=== PATIENT | female | born 1970 | race Caucasian/White ===

== ENCOUNTER 2022-11-27 06:10 | Observation (INO) ==
--- NOTE | 2022-11-08 16:23 | PAT Medication Instructions ---
Medication Instructions Date of Service November 08, 2022 Home Medications Medication Instructions Recorded Maria Isabel Chahal #1 ea 10/26/22 tramadol 50 mg tablet 50 mg PO DAILY Wheeled Tirso amlodipine 10 mg tablet 10 mg PO HS losartan 100 mg tablet 100 mg PO HS Continue as directed tramadol 50 mg tablet 50 mg PO DAILY Take evening before surgery amlodipine 10 mg tablet 10 mg PO HS losartan 100 mg tablet 100 mg PO HS Other Notes NOTHING TO EAT OR DRINK AFTER MIDNIGHT. If you have any questions please call us at [phone] or [phone] or [phone] or [phone]
--- NOTE | 2022-11-15 09:09 | Anesthesiology Consultation ---
Date of Service November 15, 2022 Assessment & Plan (1) Encounter for pre-operative examination: - COVID screening: Per assessment on 11/15: No known COVID-19 positive contacts or current COVID-19 related symptoms. Travel screen negative. Patient vaccinated. At surgeon discretion if preop Covid testing being done. - Outpatient joint assessment: Pt currently scheduled for inpatient pathway. If surgeon requests review for outpatient joint pathway, patient is not recommended candidate for outpatient joint program from anesthesia standpoint. - Pt request: "Does not want to hear tools" perioperatively. Requests deeper sedation if possible. - Check test AM DOS Chart Review Chart Review: Acceptable Risk for Surgery and Patient seen in Pre Admission Testing Teaching & Discussion Pre-Anesthesia Teaching/Discussion Notes: Instructed NPO after midnight before surgery,except medications with 15 cc of water. Medication instructions provided according to the PAT guidelines. History Surgery Operation Date: 11/27/22 10:40 Proposed Procedures p Right Total Knee Arthroplasty - Aurelio Miller MD Height/Weight Height: 5 ft 7 in Weight: 137.3 kg Allergies Allergy/AdvReac Type Severity Reaction Status Date / Time No Known Allergies Allergy Verified 11/08/22 11:18 Medications Home Medications Medication Instructions Recorded Confirmed Last Taken tramadol 50 mg tablet 50 mg PO DAILY 09/13/22 11/08/22 Unknown amlodipine 10 mg tablet 10 mg PO HS 11/08/22 11/08/22 Unknown losartan 100 mg tablet 100 mg PO HS 11/08/22 11/08/22 Unknown Wheeled Walker #1 ea 11/15/22 Unknown Past Medical History Medical History Degenerative arthritis of knee, bilateral History of COVID-19 1+ years ago- fever, chills, N/V > resolved Hypertension Morbid obesity Exercise / Class Metabolic Activity III < 4 Walking/Shop/Light housework Past Surgical History Surgical History Hx of appendectomy Hx of section x3 Hx of colonoscopy Hx of laparoscopy for ectopic Past Anesthesia History No Hx of Anesthesia Complications and No Family Hx of Anesthesia Complications History of PONV No Hx of PONV and No Hx of Motion Sickness Social History Smoking Status: Former smoker Do You Dip or Chew Tobacco: No Smoking End Date: Quit (short-term use as teen) Hx Alcohol Use: Yes Alcohol type: wine alcohol intake frequency: holidays/special occasions only Hx Substance Use: No substance use type: does not use Review of Systems Patient denies chest pain, shortness of breath, dyspnea on exertion, fever, chills, cough, wheezing, palpitations. Physical Exam Vital Signs VITALS BP 150/81 P 88 TEMP 98.4 SP02 95%RA RESP 16 PHYSICAL Full cervical extension range of motion. Full TMJ range of motion. TMD 4 finger breaths Mallampati Score 3 Dentition: intact Lungs: clear throughout to auscultation Cardiac: regular rate and rhythm, no murmurs noted Spine: normal Carotid arteries: negative bruit Extremities: no edema Lab Results Anesthesia Preop Results Results Anesthesia Widget: WBC 8.71 K/ul (4.8-10.8) 11/15/22 Hgb 15.2 g/dl (12.0-16.0) 11/15/22 Hct 44.7 % (34.1-44.9) 11/15/22 Plt 336 K/uL (130-400) 11/15/22 Na 139 mmol/L (136-145) 11/15/22 K 3.9 mmol/L (3.5-5.1) 11/15/22 Cl 105 mmol/L (98-107) 11/15/22 CO2 27 mmol/L (21-32) 11/15/22 BUN 12 mg/dl (6-23) 11/15/22 Creat 0.79 mg/dl (0.6-1.2) 11/15/22 Glucose Level 91 mg/dl (70-99(Fasting)) 11/15/22 PT 9.9 Seconds (9.0-12.0) 11/15/22 PTT 26.6 Seconds (21.0-31.0) 11/15/22 INR 0.9 (0.9-1.1) 11/15/22 Blood Type A Positive 11/15/22 Antibody Screen NEGATIVE 11/15/22 Testing Electrocardiogram Date: 11/15/22 NSR at 81bpm. unconfirmed report. Chest X-Ray Date: 11/15/22 FINDINGS: Cardiomediastinal and hilar silhouettes are within normal limits. There is no pneumothorax, pleural effusion, airspace consolidation or overt pulmonary edema. Right hemidiaphragmatic elevation. Bones appear grossly intact. IMPRESSION: No acute process. COVID-19 Risk Screen Screening Information COVID-19 Screen Date: 11/15/22 Exposure 21 Days Family/Household +COVID Last 21 Days: No Exposure 10 Days Any COVID Exposure Last 10 Days: No Symptoms Last 10 Days Experienced COVID Sx Last 10 Days: No + COVID 0-90 Days COVID + in Last 0-90 Days: No
--- NOTE | 2022-11-24 17:52 | History and Physical Report ---
DATE OF ADMISSION: 11/27/2022 CHIEF COMPLAINT: Bilateral knee pain and discomfort, right side greater than the left. HISTORY OF PRESENT ILLNESS: The patient is a 52-year-old female who presents for surgical treatment of her knees. She has a 10+ year history of increasing bilateral knee pain and discomfort that has g radually gotten worse over time. She has been through extensive conservative treatment, which has ju st become less successful over time. She has seen multiple orthopedic surgeons who refused to operat e on her due to her size. She has attempted to lose weight, but having difficulty due to her decreas ed mobility. She does have chronic lymphedema and she has gone for treatment for this and this has h elped significantly in her swelling in her lower legs. She continues to be limited by pain. It is g lobal pain. She can walk more than a couple of blocks before she has got significant pain. She woul d like to have her knees fixed. The right side is a bit worse than the left. PAST MEDICAL HISTORY: 1. Obesity with a BMI of 47.4. 2. Hypertension. 3. Lymphedema. PAST SURGICAL HISTORY: Includes x3. ALLERGIES: None. CURRENT MEDICATIONS: Include unspecified blood pressure pills x2. SOCIAL HISTORY: A 52-year-old female. She is . She has 11 kids. Rare alcohol intake. Does not smoke. FAMILY HISTORY: Noncontributory. REVIEW OF SYSTEMS: Significant for lymphedema. She has got multiple joint aches and pains. No hist ory of DVT or PE. No known bleeding problems. PHYSICAL EXAMINATION: GENERAL: Shows a pleasant middle-aged female, looks in reasonably good health. HEENT: Benign. NECK: Supple. No lymphadenopathy. LUNGS: Clear to auscultation. HEART: Regular rate and rhythm. ABDOMEN: Soft, nontender, nondistended. EXTREMITIES: Grossly neurovascularly intact except as follows: Examination of the right knee reveal s the patient walks with a varus alignment to her knee. Moderate to large soft tissue envelope. Ran ge of motion 5-120. No instability. She does have diffuse lymphedema, which is much improved from h er last visit. X-RAYS: X-rays of both knees reveal advanced bilateral knee DJD. She has complete loss of her media l joint space. She has got osteophytes in all 3 compartments on both sides. The right side is a lit tle bit worse than the left. ASSESSMENT: A 52-year-old female with morbid obesity, body mass index of 47.4, hypertension, and lym phedema with bilateral advanced knee degenerative joint disease. She has attempted to lose weight, b ut cannot do so due to her limited mobility. She is markedly debilitated by her knees. PLAN: We talked about treatment options. She has tried to optimize her situation with her lymphedem a treatment. I did talk to her about her increased risk with surgery based on her size and she is fu lly aware of the increased risk of infection and thrombosis. Despite this, she would like to proceed with knee replacement. We will proceed with right knee replacement. We may need to put a stem in h er tibia. The risks and benefits of this procedure were explained to the patient and include but not limited to DVT, PE, , infection, neurological injury, vascular injury, bleeding problem, pain, limited range of motion, stiffness, failure to relieve her symptoms, incomplete relief of symptoms, n eed for further surgery in the future, etc. The patient understands and desires to proceed. Informe d consent was obtained. I emphasized the importance of wearing her KEZIA stockings postoperatively. Job ID: [id number]
[~2022-11-27 06:10] MED LIST: ACETAMINOPHEN 500 MG TAB PO SCH; BUPIVACAINE LIPOSOME/PF 266 MG, BUPIVACAINE/EPINEPHRINE 50 ML, SODIUM CHLORIDE 0.9% 30 ... INFIL SCH; CeleBREX 200 MG CAP PO SCH; FAMOTIDINE 20 MG TAB PO SCH; LR 500ML BOLUS, THEN 15ML/HR IV SCH; LR 60ML/HR IV SCH; METOCLOPRAMIDE HCL 10 MG TABLET PO SCH; Scopolamine 1 MG TDSY TD SCH; TRANEXAMIC ACID 1,000 MG **IV Intra-op IV SCH
[2022-11-27] MEDS ORDERED: BUPIVACAINE 0.5 % 5 MG/1 ML PF 10ML VIAL ONE (06:23)
[2022-11-27] MEDS ORDERED: EPINEPHrine INJ 1 MG/ML AMP ONE (06:23)
[2022-11-27] MEDS ORDERED: ROPIVACAINE 0.5% 5 MG/ML 30 ML VIAL ONE (06:23)
--- NOTE | 2022-11-27 07:03 | History & Physical Bridge Note ---
Date of Service November 27, 2022 History & Physical Bridge Note I have examined the patient, reviewed the History & Physical and in the interval since the performance of the History & Physical I have noted the following changes of clinical significance: no changes noted
[2022-11-27] MEDS ORDERED: MIDAZOLAM HCL 1 MG/ML 2ML VIAL ONE ×3 (07:58→09:08)
[2022-11-27] MEDS ORDERED: ATROPINE SULFATE 0.1 MG/ML 10ML SYR IV PRN (08:35)
[2022-11-27] MEDS ORDERED: fentaNYL citrate 100 MCG/2 ML VIAL IV PRN (08:35)
[2022-11-27] MEDS ORDERED: ePHEDrine sulfate 50 MG/ML AMP IV PRN (08:35)
[2022-11-27] MEDS ORDERED: HYDROmorphone INJ 2 MG/ML SYR/VIAL IV PRN (08:35)
[2022-11-27] MEDS ORDERED: BUPIVACAINE/EPINEPHRINE 0.25% 1:200,000 30 ML VIAL ONE (08:46)
[2022-11-27] MEDS ORDERED: VANCOMYCIN HCL 1000MG/20ML VIAL ONE (08:46)
[2022-11-27] MEDS ORDERED: SODIUM CHLORIDE 0.9% PF 50 ML VIAL ONE (08:47)
[2022-11-27] MEDS ORDERED: BUPIVACAINE LIPOSOME 1.3% 266 MG/20 ML VIAL ONE (08:47)
[2022-11-27] MEDS ORDERED: KETAMINE 50 MG/5 ML SYRINGE ONE (09:13)
[2022-11-27] MEDS ORDERED: PROPOFOL IV EMULSION 10 MG/ML 20 ML VIAL IV ONE ×2 (09:34→10:06)
[2022-11-27] MEDS ORDERED: ONDANSETRON INJ 2 MG/ML 2 ML VIAL ONE (09:35)
[2022-11-27] MEDS ORDERED: PHENYLEPHRINE HCL 10 MG/ML VIAL ONE (09:42)
[2022-11-27] MEDS ORDERED: ePHEDrine sulfate 50 MG/ML AMP ONE (09:42)
--- NOTE | 2022-11-27 10:52 | Operative Report ---
PG Post Operative Report Pre & Post Diagnosis Operation Date: 11/27/22 08:50 Pre-Op Diagnosis: Right Knee Degenerative Joint Disease Post-Op Diagnosis: Right Knee Degenerative Joint Disease I identified the patient and participated in the time-out.: Yes Procedure Operation Date: 11/27/22 08:50 Actual Procedures p Right Total Knee Arthroplasty(Right) - Aurelio Miller MD Surgeon Aurelio Miller MD Steel Die Printer Varghese Lee PA-C Estimated Blood Loss 50 Findings Consistent with Post-Op Diagnosis Operative findings were advanced right knee DJD. As she had a extensive grade 4 [id number] disease of the medial and patellofemoral compartments. She had some spotty grade 4 changes laterally. She had a fixed varus deformity to her knee. Large soft tissue envelope. Fairly stiff knee preoperatively with only about 90 degrees of knee flexion. Fluids 1300 cc Specimens Right knee sent for pathology Drains None Anesthesia Type Spinal MAC Complications none Disposition Accompanied Patient To Recovery: No Indications Patient is a 52-year-old female whose had a long history of bilateral knee pain discomfort describes gotten worse over time. Is been through extensive conservative treatment which is become less successful over time. She is attempted weight loss without much success due to her limited mobility. She is gone through extensive lymphedema treatment trying to decrease the swelling of the legs. She been medically optimized and now presents for right total knee replacement. Description of Procedure Operative implants consist of: 1 Biomet Vanguard size 65 right posterior stabilized femoral component. 2. Biomet size 67 tibial tray. 3. 10 mm posterior stabilized polyethylene insert. 4. 28 x 8 all Paller patella. The patient was taken the operating, identified, placed on the operating table supine position protectors were properly padded. IV antibiotics arrived by anesthesia team. A Villegas catheter was placed in sterile fashion. Right thigh tent was then placed. The right lower extremities then prepped and draped in usual sterile fashion. The right leg was elevated exsanguinated with use of an Esmarch and the tourniquet was set at 300 mmHg. An anterior approach of the right knee was then performed through a longitudinal incision centered over the patella. Sharp dissection was got through subcutaneous tissue down the extensor mechanism. A medial parapatellar arthrotomy incision was made. Some subperiosteal dissection was carried out medially. The fat pad was resected from Neath patella tendon. The lateral patellofemoral ligament was released. Patella subluxated laterally and the knee was flexed. The osteophytes taken off distal femur. The ACL and PCL then released from distal femur and the tibia subluxated anteriorly. The external tibial alignment jig was then placed in the interface the tibia and adjusted 14 mm medially. Proximal tibial cut was made to remove about 2 to 3 mm of bone from the most deficient aspect the medial tibial plateau. Some osteophytes taken off medially. Tibia sized to a size 67. Attention drawn the femur. The distal femur examined the sharp drill. Intramedullary canal was suction. A right 5 degree valgus cutting guide was placed. Distal femoral cutting block was pinned in place. Distal femoral cut was made to take an additional 3 mm of bone off distal femur. The femur was then sized to a size 65. The AP cutting block was pinned parallel to the epicondylar axis which was secondary to external rotation. The anterior cut, anterior chamfer, posterior cut, posterior chamfer cuts were made. The box cutting guide was placed in just slight lateral box cut was made. The knee was flexed. The remnants of the medial and lateral menisci were excised. The osteophytes were taken off the posterior aspect the femur. A trial femoral component was placed. Tibial tray was pinned in maximum external rotation and the drill and stem punch were used to create defect in proximal tibia for the tibial tray. The knee was then trialed and the 10 mm insert fit most closely. Attention drawn the patella. The patella was cleaned of all soft tissues. Patella thickness measured 22 mm in thickness and was cut down to 14. Was sized to a size 28 patella. The lug holes were drilled for the 28 patella. The lateral osteophyte was removed. Patella button was placed. Knee was taken through range of motion patella tracked nicely with no thumbs test. Attention drawn to place the permanent components. Nupathe all trial components were removed. Bone plug was placed in the distal femur limit blood loss. A double batch Palacos G cement was mixed. Biomet Vanguard size 65 right posterior stabilized femoral component, a size 67 tibial tray, and a 10 mm posterior stabilized polyethylene insert, and a 28 x 8 all Paller the patella was then cemented in place. We did add an additional gram of vancomycin to the cement due to her history of lymphedema and obesity. The knee was brought out in full extension until cement hardened. Final cement check was then performed. Pericapsular tissues were injected with total of 100 cc of combination of 20 cc of Exparel, 30 cc normal saline, 50 cc of quarter percent Marcaine with epinephrine. Patient did receive 1 g tranexamic acid. The tourniquet was then let down for final turn time 56 minutes. Hemostasis reduced electrocautery. Extensor mechanism then closed with combination 1 PDS suture #1 Vicryl suture in a [id number] fashion. Extensor mechanism checked found to be intact with subcutaneous tissue then closed 2 Dexon suture in a buried interrupted fashion skin was closed skin monika. Leg was then cleaned and dried a sterile dressing was Xeroform, 4 x 4's, sterile cast padding, Nicho bandage were applied. Patient was then transferred to the recovery room in stable condition. The patient tolerated the procedure well and there were no complications. Varghese Lee, my physician clinical nursing assistant, was present for the entire procedure. His assistance was essential and required for appropriate patient positioning, prepping and draping, surgical exposure, performing the technical details of the operation, placement the implants, closure of the wound, and placement of the sterile bandage. I attest to the content of the Intraoperative Record and any orders documented therein. Any exceptions are noted below.
--- NOTE | 2022-11-27 11:08 | XRay Report ---
XR knee RT 1 or 2V routine CLINICAL HISTORY: Postoperative evaluation. COMPARISON: Knee radiographs September 13, 2022. FINDINGS: Alignment of the total right knee arthroplasty is anatomic. There is no periprosthetic fra cture. There are skin monika. No unexpected radiopaque foreign bodies are present. IMPRESSION: Expected findings following total right knee arthroplasty. ACT 112: Negative or not required by law. Electronically signed by: Curtis Mitchell M.D. 11/27/2022 11:07 AM
--- NOTE | 2022-11-27 11:39 | Anesthesiology Progress Note ---
Date of Service November 27, 2022 Anesthesia Post Procedure Vital Signs Vital Signs: Temp Pulse Resp BP Pulse Ox O2 Del Method 11/27/22 11:10 76 17 123/61 96 Room Air 11/27/22 11:30 36.1 C L 73 18 130/75 94 Room Air 11/27/22 11:20 75 18 115/73 96 Room Air 11/27/22 11:00 80 13 99/63 L 96 Room Air 11/27/22 10:50 36.2 C L 84 14 96/58 L 98 Oxymask 11/27/22 06:38 36.8 C 92 H 18 111/79 94 Room Air Transfer of Care Handoff Completed per policy Notes Mental Status: alert / awake / arousable and participated in evaluation Nausea / Vomiting: adequately controlled Pain: adequately controlled Airway Patency, RR, SpO2: stable & adequate BP & HR: stable & adequate Hydration State: stable & adequate Neuraxial Anesthesia: was administered and sensory block is resolving Anesthetic Complications: no major complications apparent and Pt Satisfied with anesthetic care
[2022-11-27] MEDS ORDERED: ONDANSETRON INJ 2 MG/ML 2 ML VIAL IV PRN (12:29)
[2022-11-27] MEDS ORDERED: METOCLOPRAMIDE HCL INJ 5 MG/ML 2 ML VIAL IV PRN (12:29)
[2022-11-27] MEDS ORDERED: NALOXONE HCL 0.4 MG/1 ML VIAL/CARP IV PRN (12:29)
[2022-11-27] MEDS ORDERED: HYDROmorphone INJ 0.5 MG/0.5 ML SYR IV PRN (12:29)
[2022-11-27] MEDS ORDERED: diphenhydrAMINE Capsule 25 MG CAP PO PRN (12:29)
[2022-11-27] MEDS ORDERED: ALUMINUM/MAGNESIUM SUSP 30 ML UDC PO PRN (12:29)
[2022-11-27] MEDS ORDERED: MAGNESIUM HYDROXIDE SUSP 30 ML UDC PO PRN (12:29)
[2022-11-27] MEDS ORDERED: bisacodyL 10 MG SUPP PR PRN (12:29)
[2022-11-27] MEDS: SODIUM CHLORIDE 0.9% 1000ML 1,000 ML IV SCH ×2 (13:12→23:40)
[2022-11-27] MEDS: KETOROLAC 30 MG/ML VIAL IV SCH ×2 (13:13→20:54)
[2022-11-27] MEDS: ACETAMINOPHEN 500 MG TAB PO SCH ×2 (13:13→20:56)
[2022-11-27] MEDS: oxyCODONE HCL IR 5 MG TAB (IMMEDIATE RELEASE) PO PRN (15:43)
[2022-11-27] MEDS: Scopolamine CHECK PATCH PLACEMENT SCH ×2 (16:52→23:40)
[2022-11-27] MEDS: ASCORBIC ACID 500 MG TAB PO SCH (16:52)
[2022-11-27] MEDS: ceFAZolin 2000MG 2,000 MG/15 ML SYR IV SCH (16:53)
[2022-11-27] MEDS ORDERED: TRANEXAMIC ACID / 0.7% NACL 1,000 MG/100 ML BAG IV SCH (17:00)
[2022-11-27] MEDS: DOCUSATE SODIUM 100 MG CAP PO SCH (20:53)
[2022-11-27] MEDS: TAPENTADOL HCL ER 50 MG TABCR PO SCH (20:53)
[2022-11-27] MEDS: ASPIRIN 81 MG ECTAB PO SCH (20:55)
[2022-11-27] MEDS ORDERED: DOCUSATE SODIUM/SENNA 50/8.6MG TAB PO SCH (21:00)
[2022-11-27] MEDS ORDERED: SENNA 8.6 MG TAB PO SCH (21:00)
[2022-11-27] MEDS ORDERED: amLODIPine BESYLATE 5 MG TAB PO SCH (21:00)
[2022-11-27] MEDS ORDERED: LOSARTAN POTASSIUM 50 MG TAB PO SCH (21:00)
[2022-11-28] MEDS: ceFAZolin 2000MG 2,000 MG/15 ML SYR IV SCH (01:33)
[2022-11-28] MEDS: KETOROLAC 30 MG/ML VIAL IV SCH ×3 (01:33→13:19)
[2022-11-28] MEDS: ACETAMINOPHEN 500 MG TAB PO SCH ×2 (05:35→13:19)
[2022-11-28] MEDS: oxyCODONE HCL IR 5 MG TAB (IMMEDIATE RELEASE) PO PRN ×2 (06:34→15:45)
[2022-11-28 06:56] LABS: Hematocrit (blood only) 39.3 % (37.0-47.0); Mean Corpuscular Hgb Conc 33.1 g/dL (32.0-36.0); Mean Corpuscular Volume 90.8 fL (80.0-100.0); Mean Platelet Volume 9.4 fL (9.4-12.4); Platelet Count 395 K/uL (130-400); RDW Coefficient of Variation 13.3 % (11.5-14.5); RDW Standard Deviation 44.2 fL (36.4-46.3); Red Blood Count 4.33 M/uL (4.20-5.40); White Blood Count 8.82 K/ul (4.8-10.8)
[2022-11-28 07:25] LABS: BUN Creatinine Ratio 15.4 (10-20); Calcium 8.7 mg/dl (8.5-10.1); Creatinine Clr Calc Pharmacy 118.3 ml/min; Est GFR (African American) 99.9 ml/min; Est GFR (Non-African American) 86.2 ml/min; Potassium 4.4 mmol/L (3.5-5.1)
[2022-11-28] MEDS ORDERED: dexAMETHasone 10 MG in SYRINGE 0 ML IV SCH (08:00)
[2022-11-28] MEDS: ASCORBIC ACID 500 MG TAB PO SCH (08:43)
[2022-11-28] MEDS: ASPIRIN 81 MG ECTAB PO SCH (08:43)
[2022-11-28] MEDS: DOCUSATE SODIUM 100 MG CAP PO SCH (08:44)
[2022-11-28] MEDS: Scopolamine CHECK PATCH PLACEMENT SCH (08:44)
[2022-11-28] MEDS: TAPENTADOL HCL ER 50 MG TABCR PO SCH (08:46)
[2022-11-28] MEDS ORDERED: MULTIVITAMIN TAB PO SCH (09:00)
--- NOTE | 2022-11-28 15:46 | Progress Notes ---
DATE OF SERVICE: 11/28/2022. SUBJECTIVE: A 52-year-old female postoperative day 1 from a right knee replacement. She is doing pr peace well. Her knee is sore, but manageable. No chest pain or shortness of breath. Not feeling diz zy or lightheaded. OBJECTIVE: VITAL SIGNS: Temperature 36.8. Vital signs are stable. GENERAL: Shows a pleasant middle-aged female. She is sitting up in bed, looks pretty comfortable. LUNGS: Clear to auscultation. HEART: Regular rate and rhythm. ABDOMEN: Soft, nontender, nondistended. EXTREMITIES: Grossly neurovascularly intact except as follows. Examination of the right leg reveals the leg to be well aligned. Dressing is clean, dry and intact. She can dorsiflex and plantarflex her foot appropriately. Cannot quite do a straight leg raise. LABORATORY DATA: Hemoglobin 13.0. Hematocrit 39.3. Electrolytes are stable. ASSESSMENT: A 52-year-old female postoperative day 1 from right knee replacement, doing pretty well. Pain is controlled. She is neurologically intact. She is hoping to go home. PLAN: 1. DVT prophylaxis includes thigh-high TEDs, SCDs, and aspirin twice a day. 2. PT/OT, weightbear as tolerated. Right total knee protocol. 3. Pain control, doing okay with current pain regimen. 4. Disposition. We plan to discharge to home with home health later today. Job ID: [id number]
== END 2022-11-28 16:01 | disposition home health service (06) ==
LOC: 3E 06:10 → ASU 06:10